=== PATIENT | male | born 1995 | race Hispanic/Latino ===

== ENCOUNTER 2017-09-13 15:17 | Emergency (ER) | payer OTHER ==
[2017-09-13] MEDS ORDERED: TETANUS/DIPHTHERIA TOXOID [ADULT] 0.5 ML VIAL IM ONE (16:03)
[2017-09-13] MEDS ORDERED: IBUPROFEN 600 MG TABLET ONE (16:03)
== END 2017-09-13 16:20 | disposition home or self-care (01) ==
LOC: EDH 15:17
DX: S60.812A Abrasion of left wrist, initial encounter (principal); S60.811A Abrasion of right wrist, initial encounter; X58.XXXA Exposure to other specified factors, initial encounter; Y93.89 Activity, other specified; Y92.098 Other place in other non-institutional residence as the place of occurrence of the external cause; Y99.8 Other external cause status
CPT/HCPCS: 90471; 90714

== ENCOUNTER 2022-01-05 16:12 | Emergency (ER) | payer OTHER ==
[~2022-01-05] VITALS: Ht 175.3 cm; Wt 73.0 kg
[2022-01-05 16:16] VITALS: BP 124/83
[2022-01-05] MEDS ORDERED: PRED5TAB PO (16:32)
== END 2022-01-05 16:40 | disposition home or self-care (01) ==
LOC: EDH 16:12
DX: R20.0 Anesthesia of skin (principal)

== ENCOUNTER 2023-06-01 20:52 | Emergency (ER) | payer OTHER ==
[~2023-06-01] VITALS: Ht 172.7 cm; Wt 81.6 kg
[~2023-06-01 20:52] MED LIST: PRED5TAB PO
[2023-06-01] MEDS: IBUPROFEN 800 MG TAB PO ONE (22:46)
[2023-06-01] MEDS ORDERED: IBUP-2077 PO (22:57)
[2023-06-01] MEDS ORDERED: CLIN-141 PO (22:57)
[2023-06-01 23:06] VITALS: BP 156/87; PULSE 86; RESP 16; O2SAT 98
[2023-06-01] MEDS: NEOMY SULF/BACITRA/POLYMYXIN B 1 EACH PACKET TP ONE (23:16)
== END 2023-06-01 23:18 | disposition home or self-care (01) ==
LOC: EDH 20:52
DX: S60.221A Contusion of right hand, initial encounter (principal); L03.113 Cellulitis of right upper limb; Z98.890 Other specified postprocedural states; Y08.89XA Assault by other specified means, initial encounter; Y93.89 Activity, other specified; Y92.89 Other specified places as the place of occurrence of the external cause; Y99.8 Other external cause status
CPT/HCPCS: 73130